=== PATIENT | female | born 1945 | race Caucasian/White ===

== ENCOUNTER 2018-05-24 15:56 | Emergency (ER) | payer OTHER ==
[~2018-05-24] VITALS: Ht 157.5 cm; Wt 81.1 kg
[~2018-05-24 15:56] MED LIST: AMLO5 PO; Hydrochloroth12.5 MG PO; Lisinopril2.5 MG PO; POTCHL20ER PO
[2018-05-24 16:56] LABS: BASOPHILS ABSOLUTE AUTO 0.07 K/mm3 (0.00-0.23); BASOPHILS PERCENT AUTO 1 % (0-2); EOSINOPHILS ABSOLUTE AUTO 0.21 K/mm3 (0.00-0.68); EOSINOPHILS PERCENT AUTO 3 % (0-6); Hematocrit 44.5 % (33.0-51.0); Hemoglobin 14.8 g/dL (11.5-16.0); IMMATURE GRAN ABSOLUTE AUTO 0.01 K/mm3 (0.00-0.10); IMMATURE GRAN PERCENT AUTO 0 % (0-1); LYMPHOCYTES PERCENT AUTO 35 % (21-46); MONOCYTES ABSOLUTE AUTO 0.58 K/mm3 (0.16-1.47); MONOCYTES PERCENT AUTO 7 % (4-13); Mean Corpuscular HGB 30.4 pg (26.0-34.0); Mean Corpuscular HGB Conc 33.3 g/dL (31.5-36.5); Mean Corpuscular Volume 91 fL (80-100); Mean Platelet Volume 9.5 fL (9.1-12.4); NEUTROPHILS ABSOLUTE AUTO 4.61 K/mm3 (1.96-9.15); NEUTROPHILS PERCENT AUTO 54 % (41-73); Platelet Count 290 K/mm3 (150-400); RDW Coefficient Variation 12.8 % (11.7-14.2); RDW Standard Deviation 43.2 fL (35.1-46.3); Red Blood Cell Count 4.87 M/mm3 (3.80-5.20); White Blood Cell Count 8.48 K/mm3 (4.00-11.30)
[2018-05-24 17:13] LABS: Alanine Aminotransfer (ALT/SGP 17 U/L (12-78); Albumin, Blood 4.2 g/dL (3.4-5.0); Albumin/Globulin Ratio 1.1 (0.8-1.8); Alk Phos 69 U/L (50-136); Anion Gap 8 mmol/L (6-16); Aspartate Aminotrans (AST/SGOT 21 U/L (12-37); Bilirubin, Total 0.5 mg/dL (0.1-1.0); Blood Urea Nitrogen 18 mg/dL (8-24); Bun/Creatinine Ratio 21.9 (12.0-20.0); CO2, Blood 24 mmol/L (21-32); Calcium, Blood 10.1 mg/dL (8.5-10.1); Chloride, Blood 110 mmol/L (98-108); Creatinine, Blood 0.82 mg/dL (0.40-1.00); Globulin, Blood 3.9 g/dL (2.2-4.0); Glomerular Filtration Rate >60 (60-); Glucose, Blood 125 mg/dL (70-99); Potassium, Blood 4.2 mmol/L (3.5-5.5); Sodium, Blood 142 mmol/L (136-145); Total Protein, Blood 8.1 g/dL (6.4-8.2)
[2018-05-24] MEDS ORDERED: METF500C (18:16)
[2018-05-24] MEDS ORDERED: Zofran4 MG PO (18:25)
[2018-05-24] MEDS ORDERED: Norco 5-325 Ta1 EACH PO (18:25)
== END 2018-05-24 19:01 | disposition home or self-care (01) ==
LOC: ER 15:56
PROVIDERS: Physician Assistant
DX: N13.2 Hydronephrosis with renal and ureteral calculous obstruction (principal); Z88.1 Allergy status to other antibiotic agents; Z79.899 Other long term (current) drug therapy; Z79.84 Long term (current) use of oral hypoglycemic drugs; Z86.73 Personal history of transient ischemic attack (TIA), and cerebral infarction without residual deficits
CPT/HCPCS: 36415; 74176; 80053; 85025; 96361; 96374; 96375; 96376; 99284-25; J1885; J2405; J7030

== ENCOUNTER → 2019-04-23 | Outpatient (CLI) | payer OTHER ==
[~2019-04-23] MED LIST changes: +METF500C; +Norco 5-325 Ta1 EACH PO; +Zofran4 MG PO
[2019-04-25 14:53] LABS: Adenovirus F 40/41 Not Detected (NOT DETECT); Astrovirus Not Detected (NOT DETECT); Campylobacter Sp Not Detected (NOT DETECT); Cryptosporidium Not Detected (NOT DETECT); Cyclospora Cayetanensis Not Detected (NOT DETECT); E. Coli O157 Not Detected (NOT DETECT); Entamoeba Histolytica Not Detected (NOT DETECT); Enteroaggregative E. coli-EAEC Not Detected (NOT DETECT); Enteropathogenic E. coli-EPEC Not Detected (NOT DETECT); Enterotoxigenic E. coli-ETEC Not Detected (NOT DETECT); Giardia Lamblia Not Detected (NOT DETECT); Norovirus GI/GII Not Detected (NOT DETECT); Plesiomonas Shigelloides Not Detected (NOT DETECT); Rotavirus A Not Detected (NOT DETECT); Salmonella Sp Not Detected (NOT DETECT); Sapovirus Not Detected (NOT DETECT); Shiga Toxin-prod E. coli-STEC Not Detected (NOT DETECT); Shigella/Enteroin E. coli-EIEC Not Detected (NOT DETECT); Vibrio Cholerae Not Detected (NOT DETECT); Vibrio Sp Not Detected (NOT DETECT); Yersinia Enterocolitica Not Detected (NOT DETECT)
== END | disposition home or self-care (01) ==
LOC: LAB 08:00 → LAB SHORT 08:00
PROVIDERS: Physician Assistant Medical
DX: R41.3 Other amnesia (principal); R19.7 Diarrhea, unspecified
CPT/HCPCS: 0097U

== ENCOUNTER 2020-03-03 07:50 | Day surgery (SDC) | payer OTHER ==
[~2020-03-03] VITALS: Ht 160 cm; Wt 81.4 kg
[~2020-03-03 07:50] MED LIST changes: +FERROUS SULFAT325 M3 PO; +ZESTRIL40 M2 PO
== END 2020-03-03 09:59 | disposition home or self-care (01) ==
LOC: ORSCSDS 07:50
PROVIDERS: Ophthalmology
PROC: 08RJ3JZ Replacement of Right Lens with Synthetic Substitute, Percutaneous Approach (ICD-10-PCS; principal; 2020-03-03 09:00)
DX: H25.11 Age-related nuclear cataract, right eye (principal); I10 Essential (primary) hypertension; E11.9 Type 2 diabetes mellitus without complications; E78.5 Hyperlipidemia, unspecified; Z79.899 Other long term (current) drug therapy; Z86.73 Personal history of transient ischemic attack (TIA), and cerebral infarction without residual deficits
CPT/HCPCS: 82947; J2001; J2250; J3010; J3301; V2632

== ENCOUNTER 2020-04-14 06:18 | Day surgery (SDC) | payer OTHER ==
[~2020-04-14] VITALS: Ht 157.5 cm; Wt 81.8 kg
== END 2020-04-14 08:15 | disposition home or self-care (01) ==
LOC: ORSCSDS 06:18
PROVIDERS: Ophthalmology
PROC: 08RK3JZ Replacement of Left Lens with Synthetic Substitute, Percutaneous Approach (ICD-10-PCS; principal; 2020-04-14 07:30)
DX: H25.12 Age-related nuclear cataract, left eye (principal); I10 Essential (primary) hypertension; E11.9 Type 2 diabetes mellitus without complications; Z86.73 Personal history of transient ischemic attack (TIA), and cerebral infarction without residual deficits; Z79.899 Other long term (current) drug therapy
CPT/HCPCS: 82947; J2001; J2250; J3010; J3301; J7040; V2632

== ENCOUNTER 2024-01-17 01:15 | Inpatient (IN) | payer OTHER ==
[~2024-01-17] VITALS: Ht 162.6 cm; Wt 73.0 kg
[2024-01-17] MEDS ORDERED: propofoL 100 ML IV SCH ×2 (01:20→02:45)
[2024-01-17] MEDS ORDERED: NiCARdipine HCL 50 MG in NS 250 ML IV SCH (01:30)
[2024-01-17 01:41] LABS: PO2 Arterial 209 mmHg (80-100); pH Blood Arterial 7.42 (7.35-7.45)
[2024-01-17 01:51] LABS: Source, Urine Foley catheter
[2024-01-17 01:54] LABS: Alanine Aminotransfer (ALT/SGP 11 U/L (12-78); Albumin, Blood 3.6 g/dL (3.4-5.0); Albumin/Globulin Ratio 1.1 (0.8-1.8); Alk Phos 81 U/L (50-136); Anion Gap 11 mmol/L (3-11); Aspartate Aminotrans (AST/SGOT 18 U/L (12-37); Bilirubin, Total 0.5 mg/dL (0.1-1.0); Blood Urea Nitrogen 14 mg/dL (8-24); Bun/Creatinine Ratio 20.9 (12.0-20.0); CO2, Blood 26 mmol/L (21-32); Calcium, Blood 8.5 mg/dL (8.5-10.1); Chloride, Blood 110 mmol/L (98-108); Creatinine, Blood 0.67 mg/dL (0.40-1.00); Ethanol (Alcohol), Blood, Med <3 mg/dL; Globulin, Blood 3.2 g/dL (2.2-4.0); Glomerular Filtration Rate 88 (60-); Glucose, Blood 173 mg/dL (70-99); Potassium, Blood 3.4 mmol/L (3.5-5.5); Sodium, Blood 144 mmol/L (136-145); Total Protein, Blood 6.8 g/dL (6.4-8.2)
[2024-01-17 02:04] LABS: Bilirubin, Urine Neg (Neg); Blood, Urine Neg (Neg); Glucose Qualitative, Urine 1+ (Neg); Ketones, Urine Neg (Neg); Leukocyte Esterase, Urine Neg (Neg); Nitrite, Urine Neg (Neg); Protein, Urine Neg (Neg); Urobilinogen, Urine NORM (Normal)
[2024-01-17 02:10] LABS: BASOPHILS ABSOLUTE AUTO 0.05 K/mm3 (0.00-0.23); BASOPHILS PERCENT AUTO 1 % (0-2); EOSINOPHILS ABSOLUTE AUTO 0.09 K/mm3 (0.00-0.68); EOSINOPHILS PERCENT AUTO 2 % (0-6); Hematocrit 38.5 % (33.0-51.0); Hemoglobin 13.1 g/dL (11.5-16.0); IMMATURE GRAN ABSOLUTE AUTO 0.01 K/mm3 (0.00-0.10); IMMATURE GRAN PERCENT AUTO 0 % (0-1); LYMPHOCYTES ABSOLUTE AUTO 0.67 K/mm3 (0.84-5.20); LYMPHOCYTES PERCENT AUTO 13 % (21-46); MONOCYTES PERCENT AUTO 6 % (4-13); Mean Corpuscular HGB 30.9 pg (26.0-34.0); Mean Corpuscular Volume 91 fL (80-100); Mean Platelet Volume 9.9 fL (9.1-12.4); NEUTROPHILS ABSOLUTE AUTO 4.01 K/mm3 (1.96-9.15); NEUTROPHILS PERCENT AUTO 78 % (41-73); Platelet Count 187 K/mm3 (150-400); RDW Coefficient Variation 12.5 % (11.7-14.2); RDW Standard Deviation 41.4 fL (35.1-46.3); Red Blood Cell Count 4.24 M/mm3 (3.80-5.20); White Blood Cell Count 5.13 K/mm3 (4.00-11.30)
[2024-01-17 02:12] LABS: Appearance, Urine Clear (Clear); Color, Urine Yellow (P-Yellow)
[2024-01-17 02:19] LABS: U Amphetamine Screen Not Detected; U Barbituate Screen Not Detected; U Benzodiazapine Screen Not Detected; U Buprenorphine Screen Not Detected; U Cannabinoids Screen Not Detected; U Cocaine Screen Not Detected; U Methadone Screen Not Detected; U Methamphetamine Screen Not Detected; U Opiates Screen Not Detected; U Oxycodone Screen Not Detected; U Phencyclidine Screen Not Detected
[2024-01-17] MEDS ORDERED: Morphine Sulfate 10 MG/ML 1MLSYR IV PRN (02:40)
[2024-01-17] MEDS ORDERED: LORazepam 2 MG/ML 1ML Injection IV PRN (02:40)
[2024-01-17] MEDS ORDERED: Scopolamine Hydrobromide Patch TOP PRN (02:40)
[2024-01-17 04:20] VITALS: BP 202/87
--- NOTE | 2024-01-17 05:23 | NUR ---
ASSUMED CARE: PT ARRIVED INTUBATED WITH COMFORT CARE ORDERED. PT UNRESPONSIVE, CLA CALLED. AT BEDSIDE, WAITING FOR FAMILY TO ARRIVE IN THE AM.
--- NOTE | 2024-01-17 05:57 | NUR ---
NO EVENTS OVERNIGHT. PT RESTING COMFORTABLY. REMAINED AT BEDSIDE ALL NIGHT. CLA CALLED BACK TO CLARIFY SOME PT INFORMATION.
[2024-01-17] MEDS ORDERED: Pantoprazole Sodium 40 MG Injection IV SCH (06:00)
--- NOTE | 2024-01-17 08:53 | NUR ---
ASSUMED CARE PT RESTING IN BED ON VENTILATOR, APPEARS COMFORTABLE WITH RELAXED FACE. WITH SUCTIONING PT CLENCHES HER HANDS, BUT RELAXES BACK WHEN SUCTIONING IS DONE. PT'S AND FRIEND AT THE BEDSIDE. SUPPORT PROVIDED. PT'S LIZA SAYS THERE ARE MORE CLOSE FRIENDS THAT ARE COMING TO SEE HER. HE STATES THAT COMFORT IS HIS PRIORITY FOR HER, BUT IS NOT QUITE READY TO EXTUBATE. OFFERED CLUB LICENSEE SERVICES AND HE REFUSED STATING THAT ONE OF THE VISITORS IS A BRAKE DRUM MOLDER. COMFORT CART AVAILABLE OUTSIDE THE ROOM.
--- NOTE | 2024-01-17 10:25 | NUR ---
"Spiritual Care Visit | Comfort Care Pt. is intubated and not responsive. Spouse is at bedside and welcomes my visit. Pt. is on comfort care. Facilitated a life review with pts. spouse and other friends at bedside. Spouse verbalized that they anticipate a social work therapist friend coming to visit the Pt. Listen with empathy and a calming presence. Let Spouse know that this chinchilla farmer would be around and checking on the family. and would be around for decisions that the family will be making. Spouse verbalized gratitude for the spiritual care visit. Will remain available to Pt., spouse, and friends at bedside."
--- NOTE | 2024-01-17 13:12 | NUR ---
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 She is unresponsive. Pt's states he is "so sad," but states he's pround that he knows and is able to honor and carry out her wishes. He reminicsed about their many years of marriage and how much he loves her. He states his hope is that pt will remain alive until tomorrow, so their loved ones are all able to come to say goodbye, and if she hasn't tomorrow, will liberate the patient from ventilator.
--- NOTE | 2024-01-17 16:16 | NUR ---
"Spiritual Care | Family Support and EOL Education Met with spouse outside of the Pts. room. Considered matters of EOL decisions. Spouse diplayed evidence of being prepared for the discussion. Provided the Spouse with information regarding local homes. Spouse verbalized gratitude for the information and while no decisions are made, agreed to consider his options overnight."
--- NOTE | 2024-01-17 17:05 | NUR ---
SHIFT SUMMARY PT REMAINS VENTED, NOT ON SEDATION. TENSES MUSCLES WITH SUCTIONING. PT'S HSUBAND AND MULTIPLE FRIENDS AND FAMIY HAVE BEEN BY TODAY. PT'S LIZA SAYS THERE ARE A COUPLE MORE COMING TOMORROW. PT'S HSYIMIND SAYS HE THERE ARE TWO FAMILY BIRTHDAYS ON SO HE DOESN'T WANT TO EXTUBATE TODAY AND WANTS TO WAIT TO TOMORROW. HE SAYS THERE IS ALSO SOME MORE FAMILY COMING. PT APPEARS COMFORTABLE. COMFORT IS STILL THE GOAL FOR PT PER , JUST WAITING TO EXTUBATE. PALLIATIVE CARE MET WITH PT'S . CONTINUING TO PROVIDE SUPPORT.
--- NOTE | 2024-01-17 20:00 | NUR ---
ASSUMPTION OF CARE: PT REMAINS COMFORT CARE. MULTIPLE FAMILY MEMBERS AT BEDSIDE, ALL UPDATED, QUESTIONS ANSWERED, INQUIRED ABOUT ANY POSSIBLE NEEDS (NONE WERE NEEDED/WANTED).
--- NOTE | 2024-01-18 05:52 | NUR ---
NO CHANGES OVERNIGHT. PT INTUBATED AND COMFORT MAINTAINED. SEDA AT BEDSIDE ALL NIGHT. ALL NEEDS AND CONCERNS ADDRESSED.
[2024-01-18] MEDS ORDERED: Morphine Sulfate 20 MG/1ML 1 ML Oral Syringe SL PRN (08:45)
[2024-01-18] MEDS ORDERED: LORazepam 2 MG/ML 1ML Injection IV PRN (08:45)
[2024-01-18] MEDS ORDERED: HYDROmorphone HCl/Pf 1MG SYR IV PRN (08:45)
[2024-01-18] MEDS ORDERED: Scopolamine Hydrobromide Patch TOP PRN (08:45)
[2024-01-18] MEDS ORDERED: Acetaminophen 650 MG Supp PR PRN (08:45)
[2024-01-18] MEDS ORDERED: Morphine Sulfate 10 MG/ML 1MLSYR IV PRN (08:45)
[2024-01-18] MEDS ORDERED: Morphine Sulfate 10 MG/ML 1MLSYR INH PRN (08:45)
[2024-01-18] MEDS ORDERED: Atropine Sulfate 1% Opth Soln 2ML BTL SL PRN (08:45)
[2024-01-18] MEDS ORDERED: Haloperidol Lactate Inj. 5 MG/ML Injection IV PRN (08:45)
--- NOTE | 2024-01-18 10:34 | NUR ---
"Spiritual Care Check in | Comfort care Pt. is Comfort Care. Spouse and daughter are at bedside. Facilitated some lengthy life review. Listen with interest and empathy. Spouse verbalize dthat he had narrowed down his services down to two and will let us know when the Pt. passes. Spouse and daughter verbalize gratitude for the spiritual care support, and also verbalize that they will have a personal clergy coming in this morning. Will remain available to Pt., family , and staff."
[2024-01-18] MEDS ORDERED: Acetaminophen 160MG / 5ML 10.15 UDC PT PRN (10:45)
--- NOTE | 2024-01-18 19:00 | NUR ---
ASSUMED CARE OF PATIENT AT APPROXIMATELY 1900. REPORT RECEIVED FROM TONIO KENDRICK. PT IS COMFORT CARE, RESTING IN BED WITH FAMILY AT BEDSIDE, UNRESPONSIVE. HR 128, O2 SATURATION 63%, RR 20. WILL CONTINUE TO MONITOR.
--- NOTE | 2024-01-19 05:06 | NUR ---
SHIFT SUMMARY PT REMAINED UNRESPONSIVE T/O ENTIRETY OF SHIFT. WOULD BRIEFLY WINCE/MOAN WITH REPOSTIONING. HR IN 100'S-120'S, O2 SATURATIONS RANGED FROM 50'S-80'S. 400mL OF THICK ORANGE URINE OUT IN AGUILAR THIS SHIFT. PIV'S REMAIN PATENT, SALINE LOCKED. MEDICATED PER EMAR FOR AIR HUNGER WITH GOOD BENEFIT. FAMILY AT BESIDE T/O EVENING. WILL CONTINUE TO MONITOR AND REPORT TO ONCOMING RN.
--- NOTE | 2024-01-19 07:00 | NUR ---
ASSUME CARE: I have assumed care of this patient.
== END 2024-01-19 12:10 | DRG 951 ==
LOC: ER 01:15 → ICUE 01:16
PROVIDERS: Emergency Medicine; ADMIT Student in an Organized Health Care Education/Training Program
PROC: 5A1945Z Respiratory Ventilation, 24-96 Consecutive Hours (ICD-10-PCS; principal; 2024-01-17)
PROC: 4A033R1 Measurement of Arterial Saturation, Peripheral, Percutaneous Approach (ICD-10-PCS; 2024-01-17)
DX: Z51.5 Encounter for palliative care (principal); J96.01 Acute respiratory failure with hypoxia; I61.3 Nontraumatic intracerebral hemorrhage in brain stem; Z66 Do not resuscitate; I10 Essential (primary) hypertension; F03.90 Unspecified dementia, unspecified severity, without behavioral disturbance, psychotic disturbance, mood disturbance, and anxiety; E11.9 Type 2 diabetes mellitus without complications; Z86.73 Personal history of transient ischemic attack (TIA), and cerebral infarction without residual deficits; Z88.0 Allergy status to penicillin
CPT/HCPCS: 36415; 36600; 51702; 70450; 70496; 70498; 71045; 80053; 80320; 81003; 82803; 83605; 83735; 83880; 84484; 85025; 87040; 93005; 93010; 94002; 94003; 96365-59; 96375; 99285-25; A9270; G0378; J2060; J2270; Q9967